=== PATIENT | female | born 2005 | race Hispanic/Latino ===

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

== ENCOUNTER 2024-06-19 07:40 | Emergency (ER) | payer OTHER, SELFPAY ==
[2024-06-19 08:16] LABS: Bilirubin Negative (Negative); Blood, Urine Negative (Negative); CAUTI Indications for Culture Dysuria,urgency,freq; Clarity Turbid (Clear); Glucose, Urine (Dipstick) Normal (Negative); Ketone, Urine Negative (Negative); Leukocyte 500 Leu/uL (Negative); Nitrite Negative (Negative); Protein, Urine (Dipstick) 10 mg/dL (Neg-Trace); Specific Gravity, Urine 1.032 (1.002-1.036); Urobilinogen Normal mg/dL (Less than 2); pH, Urine 5.5 (5.0-9.0)
[2024-06-19 08:17] LABS: Bacteria/HPF 1+ HPF (None Seen); Unclassified Crystals 1+ HPF (None Seen)
[2024-06-19 08:18] LABS: Pregnancy Test - Urine (BHCG) Negative (Negative); Pregu Control Background? CLEAR/WHITE (CLR/WHITE); Pregu Control Bar Appear? YES (CONTROL BAR); Specific Gravity 1.032 (1.002-1.036); Urine Culture Reflex Yes Yes
[2024-06-19] MEDS ORDERED: Phenazopyridine HCl 100 MG TAB ONE (08:19)
== END 2024-06-19 09:00 | disposition home or self-care (01) ==
LOC: ERS 07:40
DX: N39.0 Urinary tract infection, site not specified (principal)
CPT/HCPCS: 81001; 81025; 87086; 99283

== ENCOUNTER 2024-11-24 20:11 | Emergency (ER) | payer SELFPAY ==
[2024-11-24] MEDS ORDERED: predniSONE 20 MG TAB ONE (20:57)
[2024-11-24] MEDS ORDERED: Acetaminophen 325 MG TAB ONE (20:57)
== END 2024-11-24 22:14 | disposition home or self-care (01) ==
LOC: ERS 20:11
DX: B34.9 Viral infection, unspecified (principal)
CPT/HCPCS: 87428; 99283; J7512